=== PATIENT | female | born 1965 ===

== ENCOUNTER → 2020-06-11 | Outpatient (CLI) | payer OTHER ==
[~2020-06-11] MED LIST: CHLORTHALIDONE50 MG PO; ELIQUIS 2.5 MG2.5 MG PO; HYDROCODON-ACE1 EAC2 PO; NEURONTIN300 MG PO; VENTOLIN HFA 66.7 GM INH
[2020-06-11 12:27] LABS: RED BLOOD COUNT 4.83 M/UL (4.00-5.10); WHITE BLOOD COUNT 5.3 K/UL (4.5-11.0)
[2020-06-11 12:43] LABS: BUN/CREATININE RATIO 15 (0-10)
== END ==
LOC: OPSV2 11:00 → EDSTATUS 11:00 → OPSV2 11:19
PROVIDERS: Orthopaedic Surgery
DX: Z01.818 Encounter for other preprocedural examination (principal); M16.11 Unilateral primary osteoarthritis, right hip; J43.9 Emphysema, unspecified; M47.814 Spondylosis without myelopathy or radiculopathy, thoracic region; I28.8 Other diseases of pulmonary vessels
CPT/HCPCS: 36415; 71046; 80048; 81001; 85027; 87077; 87081; 87086; 87186; 93005

== ENCOUNTER → 2020-07-30 | Outpatient (CLI) | payer OTHER | LOC: HEART 5 08:00 | DX: R94.31 Abnormal electrocardiogram [ECG] [EKG] (principal); R93.89 Abnormal findings on diagnostic imaging of other specified body structures; R93.1 Abnormal findings on diagnostic imaging of heart and coronary circulation; I07.1 Rheumatic tricuspid insufficiency | CPT/HCPCS: 93306 ==

== ENCOUNTER → 2020-09-16 | Outpatient (CLI) | payer OTHER ==
[2020-09-16 12:42] LABS: HEMOGLOBIN 14.6 gm/dl (12.3-15.3); RED BLOOD COUNT 4.95 M/UL (4.00-5.10)
[2020-09-16 13:03] LABS: BUN/CREATININE RATIO 17 (0-10)
== END ==
LOC: EDSTATUS 11:30 → OPSV2 11:30
PROVIDERS: Orthopaedic Surgery
DX: Z01.818 Encounter for other preprocedural examination (principal); M16.11 Unilateral primary osteoarthritis, right hip; I10 Essential (primary) hypertension; R91.8 Other nonspecific abnormal finding of lung field
CPT/HCPCS: 71046; 80048; 81001; 83036; 85025; 93005

== ENCOUNTER → 2020-09-21 | Outpatient (CLI) | payer OTHER ==
[2020-09-21 14:32] LABS: BUN/CREATININE RATIO 14 (0-10)
== END ==
LOC: LAB 13:33
PROVIDERS: Orthopaedic Surgery
DX: Z01.812 Encounter for preprocedural laboratory examination (principal); M19.90 Unspecified osteoarthritis, unspecified site; I10 Essential (primary) hypertension
CPT/HCPCS: 36415; 80048; 86850; 86900; 86901; J7120

== ENCOUNTER 2020-09-22 07:39 | Day surgery (SDC) | payer OTHER ==
[~2020-09-22] VITALS: Ht 165.1 cm; Wt 102.1 kg
[~2020-09-22 07:39] MED LIST changes: -CHLORTHALIDONE50 MG PO; -HYDROCODON-ACE1 EAC2 PO
[2020-09-22] MEDS ORDERED: HYDROCODON-ACE1 EAC2 PO (14:54)
[2020-09-22] MEDS ORDERED: CHLORTHALIDONE50 MG PO (17:16)
[2020-09-23 03:09] LABS: HEMOGLOBIN 11.2 gm/dl (12.3-15.3); RED BLOOD COUNT 3.97 M/UL (4.00-5.10); WHITE BLOOD COUNT 7.7 K/UL (4.5-11.0)
[2020-09-23 03:50] LABS: BUN/CREATININE RATIO 18 (0-10)
[2020-09-23] MEDS ORDERED: ELIQUIS 2.5 MG2.5 MG PO (10:28)
== END 2020-09-23 15:22 | disposition home or self-care (01) ==
LOC: OR 07:39 → ZOBSOF 07:39 → EDSTATUS 09:30 → M/S 15:00 → ZOBSOF 15:00 → M/S 09-23 15:22 → OR 09-23 15:22
PROVIDERS: Orthopaedic Surgery
PROC: 3E0T3BZ Introduction of Anesthetic Agent into Peripheral Nerves and Plexi, Percutaneous Approach (ICD-10-PCS; 2020-09-22)
PROC: 0SR90JA Replacement of Right Hip Joint with Synthetic Substitute, Uncemented, Open Approach (ICD-10-PCS; principal; 2020-09-22 09:30)
DX: M16.11 Unilateral primary osteoarthritis, right hip (principal); G89.18 Other acute postprocedural pain; J44.9 Chronic obstructive pulmonary disease, unspecified; I10 Essential (primary) hypertension; E11.9 Type 2 diabetes mellitus without complications; E78.5 Hyperlipidemia, unspecified; K21.9 Gastro-esophageal reflux disease without esophagitis; F17.210 Nicotine dependence, cigarettes, uncomplicated; E66.9 Obesity, unspecified; Z68.37 Body mass index [BMI] 37.0-37.9, adult; Z20.822 Contact with and (suspected) exposure to COVID-19; Z96.642 Presence of left artificial hip joint; Z88.8 Allergy status to other drugs, medicaments and biological substances; Z79.899 Other long term (current) drug therapy; Z88.6 Allergy status to analgesic agent; Z91.041 Radiographic dye allergy status; Z91.018 Allergy to other foods
CPT/HCPCS: 36415; 72170; 73501; 76000; 80048; 85025; 86850; 86900; 86901; 97110-GP-CQ; 97116-GP-CQ; 97161; 97166; 97535; C1776; J0171; J0690; J1100; J1170; J1885; J2405; J2704; J2710; J2795; J3010; J3370; J7050; J7120

== ENCOUNTER → 2020-12-11 | Outpatient (CLI) | payer OTHER ==
[~2020-12-11] MED LIST changes: +CHLORTHALIDONE50 MG PO; +HYDROCODON-ACE1 EAC2 PO
== END ==
LOC: KOH-I 14:30
DX: M23.51 Chronic instability of knee, right knee (principal); S83.231A Complex tear of medial meniscus, current injury, right knee, initial encounter
CPT/HCPCS: 73721